=== PATIENT | female | born 1995 | race Caucasian/White ===

== ENCOUNTER 2020-05-10 18:16 | Emergency (ER) | payer OTHER ==
[~2020-05-10] VITALS: Ht 144.8 cm; Wt 49.9 kg
== END 2020-05-10 23:45 | disposition home or self-care (01) ==
LOC: ER 18:16
DX: S90.02XA Contusion of left ankle, initial encounter (principal); S70.02XA Contusion of left hip, initial encounter; S80.02XA Contusion of left knee, initial encounter; S90.32XA Contusion of left foot, initial encounter; W18.39XA Other fall on same level, initial encounter; Y93.89 Activity, other specified; Y92.481 Parking lot as the place of occurrence of the external cause; Y99.8 Other external cause status